=== PATIENT | male | born 1990 | race African-American/Black ===

== ENCOUNTER 2016-05-06 08:11 | Emergency (ER) | payer OTHER ==
--- NOTE | 2016-05-06 09:07 | UC ---
Back Pain HPI - HPI Summary HPI Summary: SEVER RIGHT LOWER BACK X 1 DAY INJURY AT WORK LIFTING A HEAVY STOVE TOP. SUDDEN ONSET PAIN RADIATING TO RIGHT LEG - History of Current Complaint Chief Complaint: UCBackPain Stated Complaint: BACK INJURY Time Seen by Provider: 05/06/16 08:18 Hx Obtained From: Patient Onset/Duration: Sudden Onset, Lasting Days - 1, Still Present Timing: Constant Severity Initially: Severe Severity Currently: Severe Back Pain: Is Discrete @ - RIGHT LOWER BACK, Radiates To - RIGHT LEG Character: Aching, Throbbing, Spasmodic Aggravating: Movement, Lifting, Bending, Walking, Cough Alleviating: Position Associated Signs And Symptoms: Positive: Numbness, Tingling, Pain with Weight Bearing. Negative: Swelling, Redness, Bruising, Fever, Weakness, Abdominal Pain , Flank Pain, Bladder Incontinence, Bowel Incontinence - Allergies/Home Medications Allergies/Adverse Reactions: Allergies Allergy/AdvReac Type Severity Reaction Status Date / Time No Known Allergies Allergy Verified 05/06/16 08:19 PMH/Surg Hx/FS Hx/Imm Hx Previously Healthy: Yes - Surgical History Surgical History: None - Family History Known Family History: Negative: Diabetes - Social History Alcohol Use: Occasionally Substance Use Type: None Smoking Status (MU): Current Some Day Smoker Type: Cigarettes Amount Used/How Often: occasional use Review of Systems Constitutional: Negative Skin: Negative Eyes: Negative ENT: Negative Respiratory: Negative Cardiovascular: Negative Gastrointestinal: Negative Genitourinary: Negative Musculoskeletal: Other: - RIGHT LOWER BACK PAIN All Other Systems Reviewed And Are Negative: Yes Physical Exam Triage Information Reviewed: Yes Appearance: Well-Nourished, Pain Distress Vital Signs: Initial Vital Signs Temp 99.2 F 05/06/16 08:20 Pulse 81 05/06/16 08:20 Resp 18 05/06/16 08:20 BP 126/74 05/06/16 08:20 Pulse Ox 100 05/06/16 08:20 Vital Signs Reviewed: Yes Eyes: Positive: Conjunctiva Clear ENT: Positive: Normal ENT inspection, Hearing grossly normal, Pharynx normal Neck: Positive: Supple, Nontender, No Lymphadenopathy Respiratory: Positive: Chest non-tender, Lungs clear, Normal breath sounds Cardiovascular: Positive: RRR, No Murmur, Pulses Normal Abdominal Exam: Normal Abdomen Description: Positive: Nontender, Soft. Negative: Distended, Guarding Bowel Sounds: Positive: Present Musculoskeletal: Positive: Other: - LOWER BACK : + TENDERNESS RIGHT LOWER BACK , NO SWELLING, NO ERYTHEMA SEVER PAIN WITH FLEXION AND EXTENSION WITH LIMITED ROM DTR + 2 BILATERAL LOWER EXT. Back Pain Course/Dx - Differential Dx/Diagnosis Provider Diagnoses: LOWER BACK STRAIN Discharge - Discharge Plan Condition: Stable Disposition: HOME Prescriptions: Cyclobenzaprine TAB* [Flexeril TAB*] 10 mg PO BID #20 tab Naproxen [Naproxen 500 MG TABS] 500 mg PO BID #20 tab Patient Education Materials: Low Back Strain (ED) Forms: *Work Release Referrals: No Primary Care Phys,NOPCP [Primary Care Provider] -
--- NOTE | 2016-05-06 09:19 | RAD ---
INDICATION: Back pain COMPARISON: None TECHNIQUE: Routine 2 view imaging of the thoracolumbar spine was performed FINDINGS: Bones: There are no acute bony findings. There are no significant osteoarthritic findings. Alignment: Normal Disc spaces: The disc spaces are well-maintained Soft tissues: There are no soft tissue abnormalities. IMPRESSION: NEGATIVE EXAMINATION
== END 2016-05-06 09:41 | disposition home or self-care (01) ==
LOC: UCCORT 08:11
DX: S39.012A Strain of muscle, fascia and tendon of lower back, initial encounter (principal); X50.0XXA Overexertion from strenuous movement or load, initial encounter; Y93.89 Activity, other specified; Y92.9 Unspecified place or not applicable; Y99.0 Civilian activity done for income or pay; F17.210 Nicotine dependence, cigarettes, uncomplicated
CPT/HCPCS: 72080; 99202; G0463